=== PATIENT | male | born 1975 | race Caucasian/White ===

== ENCOUNTER 2017-01-04 07:56 | Emergency (ER) | payer OTHER ==
[2017-01-04 08:03] VITALS: BP 133/86
--- NOTE | 2017-01-04 08:25 | UC ---
Cardiac HPI - HPI Summary HPI Summary: wrestling with a friend and got elbowed in the left anterior chest. There is pain with breathing deeply. no sob at rest. no hx of lung disease. - History of Current Complaint Chief Complaint: UCChestPain Stated Complaint: CHEST MUSCLE PAIN Time Seen by Provider: 01/04/17 08:01 Hx Obtained From: Patient Onset/Duration: Sudden Onset Timing: Constant - occurred last night. Initial Severity: Moderate Current Severity: Moderate Chest Pain Location: Left Anterior Aggravating: Deep Breaths Alleviating: Rest Associated Signs & Symptoms: Negative: Anxiety, Recent Stress, Headaches, Numbness, Tingling, Dizziness, SOB, Swelling, Syncope, Fever, Diaphoresis, Nausea/Vomiting, Palpitations, Cough, Hemoptysis, Abdominal Pain, Calf Pain/ Swelling - Risk Factors Pulmonary Embolism Risk Factors: Negative Cardiac Risk Factors: Negative Atrial Fibrillation: Negative TAD Risk Factors: Negative AMI/ACS Risk Factors: Myocardial Infarction - Allergy/Home Medications Allergies/Adverse Reactions: Allergies Allergy/AdvReac Type Severity Reaction Status Date / Time No Known Allergies Allergy Verified 01/04/17 08:03 Home Medications: Home Medications Acetaminophen [Acetaminophen Extra Stren] 500 mg PO DAILY 01/04/17 [History Confirmed 01/04/17] PMH/Surg Hx/FS Hx/Imm Hx Previously Healthy: Yes Endocrine History Of: Denies: Diabetes - Surgical History Surgical History: Yes Surgery Procedure, Year, and Place: Esophageal Muscle Surgery. Left Foot fracture repair - Family History Known Family History: Positive: None - no related heart disease. - Social History Occupation: Employed Full-time Alcohol Use: "six pack ..." monthly Substance Use Type: None Smoking Status (MU): Never Smoked Tobacco Review of Systems All Other Systems Reviewed And Are Negative: Yes Physical Exam Triage Information Reviewed: Yes Appearance: Well-Appearing, No Pain Distress, Well-Nourished - some pain during palpation of the chest otherwise breathing and talking comfortably. Vital Signs: Initial Vital Signs Temp 97.9 F 01/04/17 07:59 Pulse 73 01/04/17 07:59 Resp 16 01/04/17 07:59 BP 133/86 01/04/17 07:59 Pulse Ox 100 01/04/17 07:59 Vital Signs Reviewed: Yes Eyes: Positive: Conjunctiva Clear. Negative: Conjunctiva Inflamed ENT Exam: Normal ENT: Positive: Normal ENT inspection Neck exam: Normal Neck: Positive: Supple, Nontender, No Lymphadenopathy Respiratory Exam: Normal Respiratory: Positive: Lungs clear, Normal breath sounds, No respiratory distress, No accessory muscle use. Negative: Respiratory distress, Decreased breath sounds, Accessory muscle use, Crackles, Rhonchi, Stridor Cardiovascular Exam: Normal Cardiovascular: Positive: RRR, No Murmur, Pulses Normal, Brisk Capillary Refill Abdominal Exam: Normal Abdomen Description: Positive: Nontender, No Organomegaly Musculoskeletal Exam: Other - anterior chest wall tenderness. there is some pain with active movements of the shoulder. no lateral rib tenderness. no hyperressonance to percussion. - Assessment/Plan Course Of Treatment: no clinincal signs of flait chest, no bruising. no clinical signs of pneumothorax. - Differential Diagnoses - Chest Pain Differential Diagnosis/HQI/PQRI: Acute VA, ACS, Angina, Aortic Aneurysm, CHF, Chest Wall, Lower Respiratory Infection, Pulmonary Edema, Pulmonary Embolism - Clinical Impression Provider Diagnoses: chest wall contusion Discharge - Discharge Plan Condition: Stable Disposition: HOME Patient Education Materials: Contusion in Adults (ED) Forms: *Work Release Referrals: Francisca Young MD [Primary Care Provider] - If Needed
== END 2017-01-04 08:27 | disposition home or self-care (01) ==
LOC: UCCORT 07:56
DX: S20.219A Contusion of unspecified front wall of thorax, initial encounter (principal); W50.0XXA Accidental hit or strike by another person, initial encounter; Y93.83 Activity, rough housing and horseplay; Y92.9 Unspecified place or not applicable
CPT/HCPCS: 99211; G0463

== ENCOUNTER 2017-04-26 11:12 | Emergency (ER) | payer OTHER ==
[2017-04-26 11:39] VITALS: BP 129/83
--- NOTE | 2017-04-26 11:45 | UC ---
Throat Pain/Nasal Amado HPI - HPI Summary HPI Summary: 41 YEAR OLD MALE PRESENTS WITH COMPLAINS OF SINUS CONGESTION. - History of Current Complaint Chief Complaint: UCRespiratory Stated Complaint: SINUS COMPLAINT Time Seen by Provider: 04/26/17 11:42 - Allergies/Home Medications Allergies/Adverse Reactions: Allergies Allergy/AdvReac Type Severity Reaction Status Date / Time No Known Allergies Allergy Verified 04/26/17 11:39 PMH/Surg Hx/FS Hx/Imm Hx - Surgical History Surgical History: Yes Surgery Procedure, Year, and Place: Esophageal Muscle Surgery. Left Foot fracture repair - Family History Known Family History: Positive: None - no related heart disease. - Social History Alcohol Use: Weekly Substance Use Type: None Smoking Status (MU): Light Every Day Tobacco Smoker Type: Smokeless Tobacco Review of Systems Constitutional: Negative Skin: Negative Eyes: Negative ENT: Sore Throat, Nasal Discharge, Sinus Congestion, Sinus Pain/Tenderness Respiratory: Negative Cardiovascular: Negative Gastrointestinal: Negative Genitourinary: Negative Motor: Negative Neurovascular: Negative Musculoskeletal: Negative Neurological: Negative Psychological: Negative All Other Systems Reviewed And Are Negative: Yes Physical Exam Triage Information Reviewed: Yes Vital Signs: Initial Vital Signs Temp 36.5 C 04/26/17 11:35 Pulse 69 04/26/17 11:35 Resp 14 04/26/17 11:35 BP 129/83 04/26/17 11:35 Pulse Ox 100 04/26/17 11:35 Eye Exam: Normal ENT Exam: Normal ENT: Positive: Pharyngeal erythema, Nasal congestion, Nasal drainage Dental Exam: Normal Neck exam: Normal Neck: Positive: 1 Respiratory Exam: Normal Cardiovascular Exam: Normal Abdominal Exam: Normal Musculoskeletal Exam: Normal Neurological Exam: Normal Psychological Exam: Normal Skin Exam: Normal Throat Pain/Nasal Course/Dx - Differential Dx/Diagnosis Provider Diagnoses: SINUSITIS Discharge - Discharge Plan Condition: Stable Disposition: HOME Prescriptions: Amoxicillin/Clavulanate TAB* [Augmentin TAB 875*] 875 mg PO BID #20 tab Methylprednisolone [Medrol Dosepak 4 MG*] 4 mg PO .SEE JODIE INSTRUCTION #21 tab Patient Education Materials: Sinusitis (ED) Referrals: Non Staff,Doctor [Medical Doctor] -
== END 2017-04-26 11:49 | disposition home or self-care (01) ==
LOC: UCCORT 11:12
DX: J32.9 Chronic sinusitis, unspecified (principal); F17.210 Nicotine dependence, cigarettes, uncomplicated
CPT/HCPCS: 99212; G0463

== ENCOUNTER 2017-10-27 15:43 | Emergency (ER) | payer OTHER ==
[2017-10-27 16:15] LABS: ABS Basophils 0 10^3/ul (0-0.2); ABS Eosinophils 0 10^3/ul (0-0.6); ABS Lymphocytes 1.1 10^3/ul (1.0-4.8); ABS Monocytes 0.5 10^3/ul (0-0.8); ABS Neutrophils 6.3 10^3/ul (1.5-7.7); ABS Nucleated RBC 0 10^3/ul; Eosinophil % 0.4 % (0-6); Hematocrit 40 % (42-52); Hemoglobin 13.8 g/dl (14.0-18.0); Lymphocyte % 13.8 % (25-47); Mean Corpuscular HGB Conc 35 g/dl (31-36); Mean Corpuscular Hemoglobin 32 pg (27-31); Mean Corpuscular Volume 92 fL (80-94); Mean Platelet Volume 7 um3 (7.4-10.4); Nucleated Red Blood Cells % 0; Platelet Count 210 10^3/ul (150-450); Red Blood Count 4.33 10^6/ul (4.0-5.4); Red Cell Distribution Width 13 % (10.5-15)
[2017-10-27 16:27] LABS: INR 0.96 (0.77-1.02)
--- NOTE | 2017-10-27 17:44 | RAD ---
Indication: Chest pain. Single frontal view of the chest performed at 1645 hours was reviewed. Comparison is made with previous exam dated October 08, 2014. No mediastinal shift is noted. Heart is of normal size and configuration. Lung [place] appear clear. IMPRESSION: NO ACTIVE CARDIOPULMONARY DISEASE IS NOTED.
[2017-10-27 20:27] LABS: Urine Appearance Clear; Urine Blood Negative (Negative); Urine Color Yellow; Urine Ketones Trace (Negative); Urine Protein Negative (Negative); Urine Specific Gravity 1.015 (1.010-1.030); Urine Urobilinogen Negative (Negative)
--- NOTE | 2017-10-27 21:33 | ED ---
Rachel Nance Abhishek, scribed for Shawna Quintanilla MD on 10/27/17 at 1625 . HPI Chest Pain - HPI Summary HPI Summary: This patient is a 42 year old M BIBA with a chief complaint of chest pain since 1 hour ago. The pt arrived via EMS and the while enroute to the [facility] the pt was given 324 mg ASA. The pt states that the pain began on the left side of the chest and radiated down to the left arm as well as the back (left sided). Pertinent PMHx includes anxiety which has presented itself as chest pressure in previous episodes in the past that is often resolved by Xanax. Todays chest pain/pressure episode was not relieved by Xanax 0.5mg so pt call 911 for transport to the ED. PT was snow blowing at a onset of the pain and the pain was very sharp. Pt reports of feeling warm. Pt states he told his PCP, Dr. Broussard, that he was having chest pain and pt states his doctor recommended that he go to a therapist for his anxiety. Pt states the chest pain he is having today is different from the chest pain he attributes to anxiety. The chest pain today is described as tension and pressure. Currently, the pt is on Xanax is taken as needed. He has been on Prozac and xanax in the past for anxiety. The severity of the pain is at first described as a sharp jabbing pain (8 to 10) and later is stated to be heaviness (6 to 7 out of 10). The pain is currently subsided and is described as a 2 or 3. Enroute to the ED, the chest pain was "straight across the chest up to the shoulder blades." The patient rates the pain 3/10 in severity currently. Symptoms aggravated by nothing. Symptoms alleviated by ASA given by EMS. Patient reports nausea, and diaphoresis. The pt has not done a recent stress test. Pt has a strong fam hx for CAD in their 50 's in his father and grandfather. Grandfather with ME in his 50's, father still alive had ME and angioplasty and stents. Pt is a remote former smoker ( more than 20 yrs), neg HTN, DM, hyperlipidemia. Pt is s/p surgery for GERD in 2004 (laparoscopic Lana fundoplication), states this pain is nothing like reflux, and states he has never had pain from reflux since the surgery. - History of Current Complaint Chief Complaint: EDChestPainROMI Time Seen by Provider: 10/27/17 15:55 Hx Obtained From: Patient, Family/[employer] Manager - , EMS Onset/Duration: Started Hours Ago - one hour prior to [facility] arrival, Atraumatic , Still Present Timing: Constant, Lasting Hours - one hour Initial Severity: Severe - 8/10 Current Severity: Mild Pain Intensity: 3 Pain Scale Used: 0-10 Numeric Chest Pain Location: Left Lateral Chest Pain Radiates: Yes Chest Pain Radiates To:: Back - left side, Shoulder - left side Character: Heaviness - later became heaviness, Sharp/Stabbing Aggravating Factor(s): Nothing Alleviating Factor(s): Nothing Associated Signs and Symptoms: Positive: Chest Pain, Diaphoresis, Nausea Related History: Similar Episode/Dx as: - anxiety - Risk Factors AMI/ACS Risk Factors: Family History - Additional Pertinent History Primary Care Physician: Dr Pierre Broussard - Allergy/Home Medications Allergies/Adverse Reactions: Allergies Allergy/AdvReac Type Severity Reaction Status Date / Time No Known Allergies Allergy Verified 10/27/17 15:53 PMH/Surg Hx/FS Hx/Imm Hx Previously Healthy: No Endocrine/Hematology History: Denies: Hx Diabetes Cardiovascular History: Denies: Hx Hypertension GI History: Reports: Hx Gastroesophageal Reflux Disease - s/p Lana fundoplication 2004 Psychiatric History: Reports: Hx Anxiety - Surgical History Surgery Procedure, Year, and Place: Left Foot fracture repair. Laparoscopic Lana Fundoplication, [facility] Infectious Disease History: No Infectious Disease History: Denies: Hx Clostridium Difficile, Hx Hepatitis, Hx Human Immunodeficiency Virus (HIV), Hx of Known/Suspected MRSA, Hx Shingles, Hx Tuberculosis, Hx Known/ Suspected VRE, Hx Known/Suspected VRSA, History Other Infectious Disease, Traveled Outside the [place] in Last 30 Days - Family History Known Family History: Positive: Cardiac Disease - ME, father and grandfather in their 50's;, Other - father with carotid artery blockages. - Social History Occupation: Employed Full-time Lives: With Family Alcohol Use: Weekly Substance Use Type: Reports: None Smoking Status (MU): Former Smoker Type: Smokeless Tobacco Review of Systems Positive: Skin Diaphoresis Eyes: Negative ENT: Negative Positive: Chest Pain - left sided Respiratory: Negative Positive: Nausea Genitourinary: Negative Musculoskeletal: Other - left sided shoulder pain, and left sided back pain Skin: Negative Neurological: Negative Psychological: Normal All Other Systems Reviewed And Are Negative: Yes Physical Exam - Summary Physical Exam Summary: Appearance: Ill-appearing, moderate pain distress, Well-nourished Skin: Warm, color reflects adequate perfusion Head: Normal Head/Face inspection Eyes: Conjunctiva clear ENT: Normal inspection Neck: Supple, no nodes, no JVD. Respiratory: Lungs clear, Normal breath sounds, no respiratory distress Cardio: RRR, No murmur, pulses normal, brisk capillary refill Abdomen: soft, nontender, no masses Bowel sounds: present Musculoskeletal: Strength Intact/ ROM intact. No calf tenderness. No edema, pulses intact Neuro: Alert, muscle tone normal, facial symmetry, speech normal, sensory/motor intact Psychological: Normal Triage Information Reviewed: Yes Vital Signs On Initial Exam: Initial Vitals Temp Pulse Resp BP Pulse Ox 98.3 F 72 16 140/80 100 10/27/17 15:45 10/27/17 15:45 10/27/17 15:45 10/27/17 15:45 10/27/17 15:45 Vital Signs Reviewed: Yes - [place] Coma Scale Coma Scale Total: 15 Diagnostics - Vital Signs Vital Signs Temp Pulse Resp BP Pulse Ox 10/27/17 15:57 100 10/27/17 15:52 70 12 100 10/27/17 15:50 140/80 10/27/17 15:45 98.3 F 72 16 140/80 100 - Laboratory Lab Results: Lab Results 10/27/17 Range/Units 16:04 WBC 8.0 (3.5-10.8) 10^3/ul RBC 4.33 (4.0-5.4) 10^6/ul Hgb 13.8 L (14.0-18.0) g/dl Hct 40 L (42-52) % MCV 92 (80-94) fL MCH 32 H (27-31) pg MCHC 35 (31-36) g/dl RDW 13 (10.5-15) % Plt Count 210 (150-450) 10^3/ul MPV 7 L (7.4-10.4) um3 Neut % (Auto) 78.7 (38-83) % Lymph % (Auto) 13.8 L (25-47) % Sharkey % (Auto) 6.7 (1-9) % Eos % (Auto) 0.4 (0-6) % Baso % (Auto) 0.4 (0-2) % Absolute Neuts (auto) 6.3 (1.5-7.7) 10^3/ul Absolute Lymphs (auto) 1.1 (1.0-4.8) 10^3/ul Absolute Monos (auto) 0.5 (0-0.8) 10^3/ul Absolute Eos (auto) 0 (0-0.6) 10^3/ul Absolute Basos (auto) 0 (0-0.2) 10^3/ul Absolute Nucleated RBC 0 10^3/ul Nucleated RBC % 0 Result Diagrams: 10/27/17 16:04 10/27/17 16:04 Lab Statement: Any lab studies that have been ordered have been reviewed, and results considered in the medical decision making process. - Radiology Chest X-ray Radiology Interpretation Completed By: Radiologist - CXR reveals, per radiologist, NO ACTIVE CARDIOPULMONARY DISEASE IS NOTED. ED physician has reviewed this radiology report and agrees. - EKG 1555 Cardiac Rate: NL EKG Rhythm: Sinus Rhythm - [address] Segment: Normal Ectopy: None EKG Interpretation: EKG at 1555 reveals nml AVIVCT, nml QTc, nml axis EKG Comparison: Other - No prior EKG Re-Evaluation - Re-Evaluation 1748 Re-Evaluation Time: 17:48 Change: Unchanged Comment: Pt is stable. blood pressure is 125/65. Pulse rate 73 bpm and O2 stat is 79. 1905 Re-Evaluation Time: 19:05 Change: Unchanged Comment: Pt describes no current chest pain and discussed disposition. Chest Pain Course/Dx - Course Course Of Treatment: The pt presented to the [facility] via ambulance with a chief complaint of chest pain in the left side. At the onset, the pain was stated to be a 8/10 and described as sharp which later decreased to a "heaviness" and a 6/ 10 pain. later the pain is described to be sudden and mostly resolved. Other symptoms included diaphoresis, and nausea. We attempted to contacted Dr. Pierre Broussard (pt's PCP) from [facility] for consult on the patient at 1825. We talked to Dr. Andrei Varela at [facility] and he suggested if second troponin is neg that pt can be D/c with aspirin 81 mg and prescription for NTG as well as to follow up/ call Dr. Broussard on Sunday (10/29/17). The pt dx will be chest pain and The pt will be signed out to Dr. Gomez pending diposition and labs. - Chest Pain Differential Diagnosis/HQI/PQRI: Acute ME, ACS, Angina, Chest Wall, GI Disease, Pulmonary Embolism, Other: - anxiety - Diagnoses Provider Diagnoses: Chest pain - Provider Notifications Discussed Care Of Patient With: Marely Evans Instructed by Provider To: Other - Dr. Evans is willing to admit pt on the basis of exertional CP and strong family hx. However stress test cannot be done tomorrow at [facility]. Offered pt admission for two nights with stress test on Sun. Pt declines this as he wants to go home to his two children ages 9 and 2. Pt will have two troponins and if he remains pain free, can be DC'd to have definite follow up with Dr. Broussard on Sunday10/29/17. Discharge - Discharge Plan Condition: Fair Disposition: HOME Discharge Disposition Comment: The pt will be signed out to Dr. Gomez pending diposition and labs. Prescriptions: Aspirin [Aspirin Adult Low Strengt 81 MG] 162 mg PO DAILY #30 tab Nitroglycerin 400 MCG/SPRAY [Nitromist 400 MCG/SPRAY (NF)] 1 spray TL SEE INSTRUCTIONS PRN #100 spray PRN Reason: Pain Patient Education Materials: Chest Pain (ED) Referrals: No Primary Care Phys,NOPCP [Medical Doctor] - The documentation as recorded by the Rachel power Abhishek accurately reflects the service I personally performed and the decisions made by me, Shawna Quintanilla MD.
[2017-10-27 21:42] VITALS: BP 117/74
== END 2017-10-27 21:45 | disposition home or self-care (01) ==
LOC: ED 15:43
DX: R07.9 Chest pain, unspecified (principal); Z82.49 Family history of ischemic heart disease and other diseases of the circulatory system; Z87.891 Personal history of nicotine dependence
CPT/HCPCS: 36415; 71045; 80053; 81003; 82550; 82553; 83605; 83735; 83880; 84436; 84443; 84484; 85025; 85379; 85610; 85730; 93005; 99284